=== PATIENT | male | born 1940 ===

== ENCOUNTER 2017-08-05 08:52 | Inpatient (IN) | payer MEDICARE, OTHER ==
--- NOTE | 2017-08-05 10:06 | RAD ---
HISTORY: admission COMPARISON: 10/04/2015 FINDINGS: LUNGS: No active pulmonary disease. PLEURA: No significant pleural effusion identified, no pneumothorax apparent. CARDIOVASCULAR: Normal. OSSEOUS STRUCTURES: No significant abnormalities. VISUALIZED UPPER ABDOMEN: Normal. OTHER FINDINGS: None. IMPRESSION: No active disease.
--- NOTE | 2017-08-05 10:12 | ED PDOC ---
Arrival/HPI - General Chief Complaint: Trauma Time Seen by Provider: 08/05/17 09:04 Historian: Patient - History of Present Illness Narrative History of Present Illness (Text): 08/05/17 10:08 77yo male with PMHx of CVA and right sided weakness secondary to the CVA biba for complaint of syncopal episode. Patient states he had a syncopal episode, on his way to a store this morning. He however denies any focal complaint. Denies headache, nausea, vomiting, dizziness, visual changes, any new focal weakness, chest pain, any other complaint. Past Medical History - Provider Review Nursing Documentation Reviewed: Yes - Infectious Disease Hx of Infectious Diseases: None - Cardiac Hx Hypertension: Yes - Pulmonary Hx Respiratory Disorders: No - Neurological Hx Neurological Disorder: Yes (CVA (2009)) - HEENT Hx HEENT Disorder: No - Renal Hx Renal Disorder: No - Endocrine/Metabolic Hx Endocrine Disorders: No - Hematological/Oncological Hx Blood Disorders: No - Integumentary Hx Dermatological Disorder: Yes (Allergic reaction to left posterior upper back) - Musculoskeletal/Rheumatological Hx Falls: Yes Hx Unsteady Gait: Yes (Post CVA (2009)) - Gastrointestinal Hx Gastrointestinal Disorders: Yes (GI bleed (02/2015)) - Genitourinary/Gynecological Hx Genitourinary Disorders: No - Psychiatric Hx Psychophysiologic Disorder: No Hx Substance Use: No - Anesthesia Hx Anesthesia Reactions: No Hx Malignant Hyperthermia: No - Suicidal Assessment Feels Threatened In Home Enviroment: No Family/Social History - Physician Review Nursing Documentation Reviewed: Yes Family/Social History: Unknown Family HX Smoking Status: Former Smoker Hx Alcohol Use: Yes Hx Substance Use: No Allergies/Home Meds Allergies/Adverse Reactions: Allergies No Known Allergies Allergy (Verified 08/05/17 09:07) Home Medications: Home Meds Medication Instructions Recorded Confirmed Unobtainable 08/05/17 08/05/17 Review of Systems - Physician Review All systems were reviewed & negative as marked: Yes - Review of Systems Constitutional: Normal Eyes: Normal ENT: Normal Respiratory: Normal Cardiovascular: Normal Gastrointestinal: Normal Genitourinary Male: Normal Musculoskeletal: Normal Skin: Normal Neurological: Other (Syncope) Endocrine: Normal Hemo/Lymphatic: Normal Psychiatric: Normal Physical Exam Vital Signs Reviewed: Yes Vital Signs Temp Pulse Resp BP Pulse Ox 08/05/17 11:16 52 L 18 152/71 H 97 08/05/17 09:03 97.7 F 50 L 16 155/76 H 97 Temperature: Afebrile Blood Pressure: Normal Pulse: Bradycardic Respiratory Rate: Normal Appearance: Positive for: Well-Appearing, Non-Toxic, Comfortable Pain Distress: None Mental Status: Positive for: Alert and Oriented X 3 Finger Stick Blood Glucose: 129 - Systems Exam Head: Present: Atraumatic, Normocephalic Pupils: Present: PERRL Extroacular Muscles: Present: EOMI Conjunctiva: Present: Normal Mouth: Present: Moist Mucous Membranes Neck: Present: Normal Range of Motion Respiratory/Chest: Present: Clear to Auscultation, Good Air Exchange. No: Respiratory Distress, Accessory Muscle Use Cardiovascular: Present: Regular Rate and Rhythm, Normal S1, S2. No: Murmurs Abdomen: Present: Normal Bowel Sounds. No: Tenderness, Distention, Peritoneal Signs Back: Present: Normal Inspection Upper Extremity: Present: Normal Inspection. No: Cyanosis, Edema Lower Extremity: Present: Normal Inspection. No: Edema Neurological: Present: GCS=15, CN II-XII Intact, Speech Normal, Motor Func Grossly Intact, Normal Sensory Function, Normal Cerebellar Funct, Memory Normal , Other (Mild weakness on right sided upper/lower extremity with facial droop secondary to old CVA) Skin: Present: Warm, Dry, Normal Color. No: Rashes Psychiatric: Present: Alert, Oriented x 3, Normal Insight, Normal Concentration Medical Decision Making ED Course and Treatment: 08/05/17 10:20 77yo male with h/o CVA in ED for syncopal episode this morning. He was neurologically intact in ED. right sided weakness was noted secondary to old CVA 7years ago. Labs ordered Head CT ordered EKG Sinus diana @40 with AV dissociation and idoventricular rhythm; LAD with LBBB. This are new findings on his EKG compared to his old EKG. Pt likely will need a pacemaker. Will evaluate lab and admit patient for further evaluation and intervention 08/05/17 10:[address] - No acute findings CXR NAD 08/05/17 11:[address] Cornell, while he was in ED and he saw patient by the bedside. Request Dr. canchola consult 08/05/17 12:31 PT was seen in ED by Dr. Canchola. Pt scheduled for pacemaker implant at 0500pm. - Lab Interpretations Lab Results: 08/05/17 09:00 08/05/17 10:20 Lab Results 08/05/17 10:52: Urine Color Yellow, Urine Appearance Sl cloudy, Urine pH 6.0, Ur Specific [place] >= 1.030, Urine Protein 100 H, Urine Glucose (UA) Negative, Urine Ketones Trace H, Urine Blood Moderate H, Urine Nitrate Negative, Urine Bilirubin Negative, Urine Urobilinogen 0.2, Ur Leukocyte Esterase Negative, Urine RBC 10 - 15, Urine WBC Negative 08/05/17 10:20: Sodium 143, Potassium 4.5, Chloride 108 H, Carbon Dioxide 23, Anion Gap 17, BUN 22 H, Creatinine 1.2, Est GFR ( Amer) > 60, Est GFR ( Non-Af Amer) 59, Random Glucose 133 H, Calcium 9.4, Total Bilirubin 0.8, AST 31 , ALT 24, Alkaline Phosphatase 72, Troponin I 0.02 D, Total Protein 7.8, Albumin 4.3, Globulin 3.6, Albumin/Globulin Ratio 1.2, Triglycerides 159, Cholesterol 145, LDL Cholesterol Direct 80, HDL Cholesterol 37 08/05/17 09:00: PT 12.9 H, INR 1.12 H, APTT 27.0 08/05/17 09:00: WBC 8.6, RBC 4.07, Hgb 13.6 L, Hct 40.2 L, MCV 98.8, MCH 33.4, MCHC 33.8, RDW 13.9, Plt Count 168, MPV 12.3 H, Gran % 63.6, Lymph % (Auto) 17.9 L, [place] % (Auto) 10.8 H, Eos % (Auto) 7.2 H, Baso % (Auto) 0.5, Gran # 5.49 , Lymph # 1.5, [place] # 0.9 H, Eos # 0.6, Baso # 0.04 - RAD Interpretation Radiology Orders: 08/05/17 09:10 CHEST PORTABLE [RAD] Stat 08/05/17 09:11 HEAD W/O CONTRAST [CT] Stat - Medication Orders Current Medication Orders: Amlodipine Besylate (Norvasc) 5 mg PO DAILY DAGOBERTO Aspirin (Aspirin Chewable) 81 mg PO DAILY DAGOBERTO Atorvastatin Calcium (Lipitor) 20 mg PO DAILY DAGOBERTO Sodium Chloride (Sodium Chloride 0.45%) 1,000 mls @ 30 mls/hr IV .Q24H DAGOBERTO Pantoprazole Sodium (Protonix Ec Tab) 40 mg PO DAILY DAGOBERTO Discontinued Medications Aspirin (Aspirin Chewable) 81 mg PO STAT STA Stop: 08/05/17 11:19 Atorvastatin Calcium (Lipitor) 20 mg PO STAT STA Stop: 08/05/17 11:20 Disposition/Present on Arrival - Present on Arrival Any Indicators Present on Arrival: No History of DVT/PE: No History of Uncontrolled Diabetes: No Urinary Catheter: No History of Decub. Ulcer: No History Surgical Site Infection Following: None - Disposition Have Diagnosis and Disposition been Completed?: Yes Diagnosis: Bradycardia, Syncope Disposition: HOSPITALIZED Disposition Time: 11:10 Patient Plan: Admission Patient Problems: Current Active Problems Problem Status Onset Bradycardia Acute Syncope Acute Condition: FAIR
[2017-08-05 10:14] LABS: BASO # 0.04 K/mm3 (0.0-2.0); BASO % 0.5 % (0.0-3.0); EOS # 0.6 (0.0-0.7); EOS % 7.2 % (1.5-5.0); GRAN # 5.49 (1.4-6.5); GRAN % 63.6 % (50.0-68.0); HEMOGLOBIN 13.6 g/dL (14.0-18.0); LYMPH # 1.5 (1.2-3.4); LYMPH % 17.9 % (22.0-35.0); MEAN CELL VOLUME 98.8 fl (80.0-105.0); MEAN CORPUSCULAR HEMOGLOBIN 33.4 pg (25.0-35.0); MEAN CORPUSCULAR HGB CONC 33.8 g/dl (31.0-37.0); MEAN PLATELET VOLUME 12.3 fl (7.0-11.0); MONO # 0.9 (0.1-0.6); MONO % 10.8 % (1.0-6.0); RBC 4.07 10^6/uL (3.5-6.1); RED CELL DISTRIBUTION WIDTH 13.9 % (11.5-14.5); WHITE BLOOD COUNT 8.6 10^3/ul (4.5-11.0)
--- NOTE | 2017-08-05 10:25 | CT ---
PROCEDURE: CT HEAD WITHOUT CONTRAST. HISTORY: syncope COMPARISON: 10/04/2015 TECHNIQUE: Axial computed tomography images were obtained through the head/brain without intravenous contrast. Radiation dose: Total exam DLP = 960 mGy-cm. This CT exam was performed using one or more of the following dose reduction techniques: Automated exposure control, adjustment of the mA and/or kV according to patient size, and/or use of iterative reconstruction technique. FINDINGS: HEMORRHAGE: No intracranial hemorrhage. BRAIN: No mass effect or edema. There is a chronic white matter infarct in the left seals radiata measuring 12 x 28 mm. There is surrounding encephalomalacia. There are no acute findings VENTRICLES: Unremarkable. No hydrocephalus. CALVARIUM: Unremarkable. PARANASAL SINUSES: Unremarkable as visualized. No significant inflammatory changes. MASTOID AIR CELLS: Unremarkable as visualized. No inflammatory changes. OTHER FINDINGS: None. IMPRESSION: No acute intracranial findings
[2017-08-05 10:31] LABS: INR 1.12 (0.93-1.08); PROTHROMBIN TIME 12.9 SECONDS (9.4-12.5)
[2017-08-05 10:51] LABS: ALB/GLOB RATIO 1.2 (1.1-1.8); ALBUMIN 4.3 g/dL (3.0-4.8); ALT/SGPT 24 U/L (7-56); AST/SGOT 31 U/L (17-59); BLOOD UREA NITROGEN 22 mg/dL (7-21); CALCIUM 9.4 mg/dL (8.4-10.5); GFR AFRICAN-AMERICAN > 60; GFR NON-AFRICAN AMERICAN 59; HDL CHOLESTEROL 37 mg/dL (29-60)
[2017-08-05 11:04] LABS: URINE BILIRUBIN NEGATIVE (NEGATIVE); URINE BLOOD MODERATE (NEGATIVE); URINE GLUCOSE (UA) NEGATIVE (NEGATIVE); URINE LEUKOCYTE ESTERASE NEGATIVE Leu/uL (NEGATIVE); URINE NITRATE NEGATIVE (NEGATIVE); URINE PROTEIN 100 mg/dL (<30 mg/dL); URINE UROBILINOGEN 0.2 E.U./dL (<1 E.U./dL)
[2017-08-05 11:05] LABS: URINE APPEARANCE SL CLOUDY (CLEAR); URINE COLOR YELLOW (YELLOW)
[2017-08-05 11:11] LABS: LDL CHOLESTEROL 80 mg/dL (0-129); TROPONIN I 0.02 ng/mL
[2017-08-05 11:13] LABS: URINE WBC NEGATIVE /hpf (0-6)
[2017-08-05] MEDS ORDERED: Sodium Chloride 0.45% 1,000 ML IV SCH (11:30)
[2017-08-05] MEDS ORDERED: Liquid Adhesive TOP ONE (16:00)
[2017-08-05] MEDS ORDERED: Lidocaine 2% Inj (20ml) ONE (17:15)
[2017-08-05] MEDS ORDERED: Midazolam 2 MG/2 ML VIAL ONE (17:16)
[2017-08-05] MEDS ORDERED: Phenylephrine 10 mg/ml Inj ONE (17:16)
[2017-08-05] MEDS ORDERED: HEPARIN SODIUM/NS 2,000 ML IV ONE (17:16)
--- NOTE | 2017-08-05 19:01 | CARD ---
APPROVED REPORT EXAM: Two-dimensional and M-mode echocardiogram with Doppler and color Doppler. INDICATION Syncope 2D DIMENSIONS IVSd1.3 (0.7-1.1cm)LVDd4.7 (3.9-5.9cm) PWd1.5 (0.7-1.1cm)LVDs3.3 (2.5-4.0cm) FS (%) 29.1 %LVEF (%)55.9 (>50%) M-Mode DIMENSIONS Aortic Root3.80 (2.2-3.7cm)Aortic Cusp Exc.1.90 (1.5-2.0cm) Aortic Valve AoV Peak Swmvafhe935.0cm/Naila Peak GR.7mmHg Mitral Valve MV E Zleoyepd74.0cm/sMV A Ddpgtufu070.0cm/sE/A ratio0.5 TDI Lateral E' Peak V7.31cm/sMedial E' Peak V6.92cm/sE/Lateral E'8.3 E/Medial E'8.8 Pulmonary Valve PV Peak Chajchet972.0cm/sPV Peak Grad.5mmHg Tricuspid Valve TR Peak Xnlaoemj885xe/sRAP RNICJIMS23syTdCL Peak Gr.31mmHg MJWE22mhCs LEFT VENTRICLE The left ventricle is normal size. There is mild concentric left ventricular hypertrophy. The left ventricular function is normal. The left ventricular ejection fraction is within the normal range. There is normal LV segmental wall motion. Transmitral Doppler flow pattern is Grade I-abnormal relaxation pattern. RIGHT VENTRICLE The right ventricle is normal size. There is normal right ventricular wall thickness. The right ventricular systolic function is normal. ATRIA The left atrium size is normal. The right atrium size is normal. AORTIC VALVE The aortic valve is mildly thickened. There is no aortic valvular stenosis. MITRAL VALVE The mitral valve is mildly thickened. There is no mitral valve regurgitation noted. There is no mitral valve stenosis. TRICUSPID VALVE There is mild pulmonary hypertension. PULMONIC VALVE There is trace pulmonic valvular regurgitation. GREAT VESSELS The aortic root is normal in size. PERICARDIAL EFFUSION There is a trace loculated anterior pericardial effusion. <Conclusion> The left ventricle is normal size. There is mild concentric left ventricular hypertrophy. The left ventricular function is normal. The left ventricular ejection fraction is within the normal range. There is normal LV segmental wall motion. Transmitral Doppler flow pattern is Grade I-abnormal relaxation pattern. There is mild pulmonary hypertension.
--- NOTE | 2017-08-05 20:04 | CON ---
DATE: 08/05/2017 CARDIOLOGY CONSULTATION HISTORY OF PRESENT ILLNESS: The patient is a 77-year-old male who presented to the Emergency Room with a syncopal episode. He was found to be in complete heart block. The patient's past medical history is free of cardiac disease. He is on three medications in which he is unclear what they are for. The patient lives by himself. His cardiovascular history includes a history of a CVA, which the patient uses a cane to walk around. No previous myocardial infarction in the past. He denies chest pain, denies shortness of breath. SOCIAL HISTORY: He is a former smoker. REVIEW OF SYSTEMS: A 14-point review of systems is reviewed in detail. No cardiac symptomatology other than what was mentioned above. PHYSICAL EXAMINATION: VITAL SIGNS: Blood pressure is 155/76, heart rate in the 50s, in complete heart block. NECK: Negative JVD. LUNGS: Without rales. HEART: S1, S2. EXTREMITIES: Without edema. EKG shows complete heart block. LABORATORY: Troponin is negative x1. BUN and creatinine is unremarkable. Hemoglobin is 13.6. IMPRESSION: 1. Syncope. 2. Complete heart block. 3. History of hypertension. 4. History of cerebrovascular accident. Given these findings, the patient will need a pacemaker. We will arrange for a pacemaker to be done urgently. I have discussed with Dr. Whitfield who will make arrangements to have the pacemaker placed today. Mike Canchola MD
[2017-08-05] MEDS ORDERED: DOPamine 400mg/250ml D5W 400 MG/250 ML BAG IV ONE (20:31)
--- NOTE | 2017-08-05 21:46 | CARD ---
APPROVED REPORT EKG Measurement Heart [id number] <Conclusion> Normal sinus rhythm Left axis deviation Right bundle branch block Septal infarct, age undetermined Abnormal ECG
[2017-08-05 21:47] VITALS: BMI 25.1
--- NOTE | 2017-08-05 22:30 | CARD ---
APPROVED REPORT EKG Measurement Heart [id number] KS P59 [id number] <Conclusion> Sinus rhythm with complete AV Block Left axis deviation Left bundle branch block Abnormal ECG
--- NOTE | 2017-08-05 22:38 | CARD ---
APPROVED REPORT EXAM: LIMITED Two-dimensional and M-mode echocardiogram. INDICATION R/O PERICARDIAL EFFUSION PERICARDIAL EFFUSION There is a trace loculated anterior pericardial effusion. <Conclusion> There is a trace loculated anterior pericardial effusion. Recent report The left ventricle is normal size. There is mild concentric left ventricular hypertrophy. The left ventricular function is normal. The left ventricular ejection fraction is within the normal range. There is normal LV segmental wall motion. Transmitral Doppler flow pattern is Grade I-abnormal relaxation pattern. There is mild pulmonary hypertension.
--- NOTE | 2017-08-05 23:03 | HP ---
HISTORY OF PRESENT ILLNESS: I was called down to the emergency room for this young man I see in the office. This is a 77-year-old man who complains of syncopal episode. He was on his way to the store. He has a past medical history of CVA with right-sided weakness secondary to CVA. He was brought in by ambulance for this complaint. He has a history of hypertension, GERD, CVA. He had a GI bleed in the past. FAMILY HISTORY: Unknown family history. SOCIAL HISTORY: Former smoker. Drinks alcohol. No substance abuse. ALLERGIES: NO KNOWN DRUG ALLERGIES. MEDICATIONS: He takes amlodipine 5 mg daily, aspirin 81 mg daily, atorvastatin 20 mg daily, Protonix 40 mg daily. REVIEW OF SYSTEMS: He is lightheaded and had a syncopal episode. No acute vision or hearing changes. No sore throat. No chest pain or palpitations. No shortness of breath. No cough. No abdominal pain, nausea, vomiting, constipation, diarrhea. No leg pains. He just sort of syncopized. No nervousness. No anxiety. PHYSICAL EXAMINATION: VITAL SIGNS: He has a 97.7 temp, 50 pulse, 16 respiratory rate, 155/76 blood pressure, 97% O2 sat on room air. The pulse also dropped in the 30s. GENERAL: He is well appearing, nontoxic, comfortable, alert now in the [facility]. He is bradycardic. His blood sugar was 129. HEENT: His head is atraumatic, normocephalic. Extraocular muscles are intact. Pupils are equally reactive to light. Throat is moist. NECK: Supple. Normal range of motion. HEART: Regular rate. Normal S1, S2. LUNGS: Decreased breath sounds. Clear to auscultation bilaterally. ABDOMEN: Soft, nontender. Positive bowel sounds. No guarding. No rebound. No CVA tenderness. EXTREMITIES: No edema. He can move all 4 extremities. NEUROLOGIC: GCS is 15. Cranial nerves II through XII grossly intact. Normal speech. He does have mild right weakness secondary to his CVA. SKIN: Warm and dry. No apparent rashes or ulcers. PSYCHIATRIC: Alert and oriented x3. Not anxious. Worried about having a pacemaker. LABORATORY DATA: He had test done. He has 8.6 white count, 13.6, hemoglobin, 40.2 hematocrit with a 168 platelets. 1.12 INR. 143 sodium, potassium 4.5, BUN 22, creatinine 1.2. GFR is 59, sugars 133, calcium is 9.4, total bili is 0.8. AST is 31, ALT is 24, alk phos 72. Total protein is 7.8. Troponin I is 0.02. Albumin is 4.3. He had a chest x-ray which was clear and a CAT scan of the head which has no acute intracranial abnormalities at this time. EKG was slow to the 30s. PLAN: We will call Dr. Canchola, the mold forms builder. We will put him on telemetry. Put him back on his medications, IV fluids. Check his labs tomorrow. I believe, there is also a swallow evaluation. We will continue with aggressive treatment and care. may need a pacemaker for his bradycardia and syncopal episode. Vinay Cornell DO MTDD
[2017-08-06 07:20] LABS: HEMOGLOBIN 12.5 g/dL (14.0-18.0); MEAN CELL VOLUME 97.6 fl (80.0-105.0); MEAN CORPUSCULAR HEMOGLOBIN 32.9 pg (25.0-35.0); MEAN CORPUSCULAR HGB CONC 33.7 g/dl (31.0-37.0); MEAN PLATELET VOLUME 12.1 fl (7.0-11.0); RBC 3.8 10^6/uL (3.5-6.1); RED CELL DISTRIBUTION WIDTH 13.4 % (11.5-14.5); WHITE BLOOD COUNT 8.8 10^3/ul (4.5-11.0)
[2017-08-06 07:39] LABS: ALB/GLOB RATIO 1.2 (1.1-1.8); ALBUMIN 3.6 g/dL (3.0-4.8); ALT/SGPT 32 U/L (7-56); AST/SGOT 32 U/L (17-59); BLOOD UREA NITROGEN 17 mg/dL (7-21); CALCIUM 8.7 mg/dL (8.4-10.5); GFR AFRICAN-AMERICAN > 60; GFR NON-AFRICAN AMERICAN > 60
--- NOTE | 2017-08-06 09:25 | RAD ---
HISTORY: post ppm implant COMPARISON: No prior. FINDINGS: LUNGS: No active pulmonary disease. PLEURA: No significant pleural effusion identified, no pneumothorax apparent. CARDIOVASCULAR: Normal. OSSEOUS STRUCTURES: No significant abnormalities. VISUALIZED UPPER ABDOMEN: Normal. OTHER FINDINGS: None. IMPRESSION: There is a new right-sided dual lead pacemaker. There is no pneumothorax
--- NOTE | 2017-08-06 09:47 | OP ---
PROCEDURE DATE: 08/05/2017. PROCEDURE: Dual chamber permanent pacemaker implantation. PREPROCEDURE DIAGNOSIS: Complete heart block. BRIEF HISTORY: Mr. Jermaine Couch is a 77-year-old [place] male with past medical history significant for hypertension, stroke, and prior history of syncope, who presents to [facility] today with an episode of recurrent syncope. The patient had been in his usual state of health, walking down the street, where all of a sudden he lost consciousness and ended up falling. He regained conscious. He was seen by a bystander. EMS was called. He was found to be in complete heart block with an escape rhythm in the 40s with no atrioventricular association. I was asked to manage the patient. The recommendation had been for implantation of a permanent pacemaker. The patient had baseline bifascicular block with first degree AV block. The patient had prior episodes of syncope with no other finding. Informed consent was received for the procedure as well as conscious sedation of which he received 1 mg of versed and 25 mcg of fentanyl. Of note, the patient has a history of CVA with residual right-sided weakness, therefore, a right-sided implant had been desired. The patient was brought into the room in satisfactory condition. The patient did have resumption of intrinsic rhythm with a heart rate in the 70s. The patient was draped and prepped in a sterile fashion. A 2% lidocaine solution was injected into the surgical site. A 3.5 cm incision was made 2 fingerbreadths below the clavicle. Using blunt dissection and electrocautery, the pressure points were dissected and subclavian vein was identified. A subclavian vein cut down was then performed. A glide wire was used to achieve and maintain access. Subsequently, a 9-Bulgarian SafeSheath was inserted again without difficulty. The right ventricular lead which is a Medtronic [id number] CapSureFix lead serial #[id number] was inserted via the sheath and manipulated into the right ventricular apex without difficulty. At that point, the patient began to complain of pain in his left arm. The patient's blood pressure dropped precipitously down to a systolic of 48. The patient was given wide open fluid, initiated on dopamine. The patient's sinus rate remained stable, despite being hypotensive. The patient also had complains of dizziness. The right ventricular lead at that point was inspected under multiple views. There was no clear evidence of RV lead extrusion into the pericardium, nonetheless, the right ventricular lead was repositioned into a septal position. Subsequently, using retain access an 035 glide wire was again put through the 9-Bulgarian SafeSheath, a 7-Bulgarian SafeSheath was inserted without difficulty. The right atrial lead was then inserted via the sheath. This is Medtronic [id number], CapSureFix lead serial #[id number]. Parameters on this lead was within normal limits with threshold of 1.0 volt to 0.4 milliseconds, impedance of 437 with Q-wave seems to be 2.6. Again the RV lead serial #[id number]. The parameters on the right ventricular lead also was within normal limits with threshold with 0.25 volts to 0.4 milliseconds R-waves measured 3.8 . Lead impedance was 817, both of which were within normal limits. At that point, it was thought that the patient may be having a vagal reaction. The patient had blood pressure cuff on the left arm and possible infiltrating IVs. The patient had been receiving fluids as well. With significant pain, it was thought perhaps the patient had a vagal episode. Blood pressure cuff was moved to the leg. The patient's condition and complaints of pain and dizziness did resolve. Dopamine was discontinued. At that point, both leads were tied in using 0 silk suture. The leads were then connected to the pulse generator, which is a Medtronic MRI-Safe device serial #[id number]. Again this is a Medtronic Advisa DR device which is MRI compatible. A fresh pocket was made with blunt dissection and electrocautery, irrigated with bacitracin solution, lead placement device was then coiled and placed in the pocket without difficulty. Retention suture was applied again without difficulty. The skin layers were brought together using 2 layers of 2-0 Vicryl. The final area was closed with Mastisol and Steri-Strips. A small pressure dressing was then applied. Postoperatively, the patient remained hemodynamically stable. For further evaluation, a limited 2D echocardiogram was performed, study was reviewed in real time which did not show any evidence of significant pericardial effusion. The patient remained hemodynamically stable at the end of the case. PLAN: The patient should undergo normal postop checks which include a 12-lead EKG, chest x-ray as well as device check in the morning. He will be moved to the ICU as a precaution for further monitoring. If he remain stable, the patient may be down graded further management and evaluation as per Dr. Mike Prajapati. Thank you for allowing me to participate in the care of your patient. Please do not hesitate to call for any questions in regards to his care. Your's sincerely, Miguel Tejada MD
[2017-08-06] MEDS: Pantoprazole 40 mg EC Tab PO SCH (10:04)
--- NOTE | 2017-08-06 12:24 | CARD ---
APPROVED REPORT EKG Measurement Heart [id number] [place] [id number] <Conclusion> Electronic ventricular pacemaker with failure of sensing Sinus rhytm RBBB
--- NOTE | 2017-08-06 12:58 | PN ---
DATE: SUBJECTIVE: We admitted him last night. He came in with a very low pulse rate and it is possible he may need to have a pacemaker. Although his pulse is now in the 70s, he is in the intensive care unit. He is feeling a lot better. PHYSICAL EXAMINATION: VITAL SIGNS: He has 98.2 temperature, 73 pulse, 16 respiratory rate, 90% O2 sat. HEENT: Head is atraumatic and normocephalic. HEART: Regular rate. LUNGS: Decreased breath sounds, but clear. ABDOMEN: Soft. EXTREMITIES: No edema. MEDICATIONS: He is currently on aspirin, Lipitor, Norvasc, Protonix and IV fluids. LABORATORY DATA: He has 8.8 white count, 12.5 hemoglobin, 37.1 hematocrit, with a 146 platelets. His INR is 1.12. He has a 142 sodium, potassium is 4, BUN 17, and creatinine 1.1. GFR is greater than 60. Sugar is 112, calcium is 8.7, total bilirubin is 1.1, AST is 32, ALT is 32, alkaline phosphatase is 58. Troponin I was 0.02. Total protein is 6.7, albumin is 3.6. His urine was negative. ASSESSMENT AND PLAN: Awaiting for Dr. Canchola, the Orthopedic Technician, to see him to make a decision on pacemaker or not. He_ syncope, complete heart block, and history of hypertension. He will need a pacemaker. We discussed with Dr. Tejada and make arrangements for pacemaker for possibility of today. We will follow up in the intensive care unit. Continue with treatment and care. He is for severe bradycardia. Vinay Cornell DO MTDEmily
--- NOTE | 2017-08-06 18:09 | PN ---
CARDIOLOGY FOLLOWUP DATE: 08/06/2017 SUBJECTIVE: The patient is feeling better. The patient is status post pacemaker placement for complete heart block with a syncopal episode. OBJECTIVE: VITAL SIGNS: Currently, the patient's blood pressure is 141/100, heart rate is in the 80s, normal sinus rhythm with first-degree heart block and intraventricular conduction defect. NECK: Negative JVD. LUNGS: Without rales. HEART: S1 and S2. EXTREMITIES: Without edema. LABORATORY DATA: Hemoglobin is 12.5. Chemistries; BUN and creatinine is unremarkable. IMPRESSION: Status post pacemaker placement for complete heart block. PLAN: Given these findings, we will transfer the patient to telemetry today. We will begin ambulation. If the patient is stable, the patient can be discharged for follow up and cardiac workup as an outpatient. Mike Canchola MD
[2017-08-07 07:14] LABS: HEMOGLOBIN 13.9 g/dL (14.0-18.0); MEAN CELL VOLUME 96.9 fl (80.0-105.0); MEAN CORPUSCULAR HEMOGLOBIN 33.2 pg (25.0-35.0); MEAN CORPUSCULAR HGB CONC 34.2 g/dl (31.0-37.0); MEAN PLATELET VOLUME 11.9 fl (7.0-11.0); RBC 4.19 10^6/uL (3.5-6.1); RED CELL DISTRIBUTION WIDTH 13.5 % (11.5-14.5)
[2017-08-07 07:31] LABS: ALB/GLOB RATIO 1.1 (1.1-1.8); ALBUMIN 3.8 g/dL (3.0-4.8); ALT/SGPT 26 U/L (7-56); AST/SGOT 35 U/L (17-59); BLOOD UREA NITROGEN 17 mg/dL (7-21); CALCIUM 8.9 mg/dL (8.4-10.5); GFR AFRICAN-AMERICAN > 60; GFR NON-AFRICAN AMERICAN > 60
[2017-08-07 08:04] VITALS: RESP 16; O2SAT 94
[2017-08-07] MEDS: Pantoprazole 40 mg EC Tab PO SCH (09:05)
[2017-08-07 11:22] VITALS: BP 129/61; PULSE 104
[2017-08-07 12:12] LABS: HEMOGLOBIN 13.5 g/dL (14.0-18.0); MEAN CORPUSCULAR HEMOGLOBIN 33.5 pg (25.0-35.0); MEAN CORPUSCULAR HGB CONC 34.5 g/dl (31.0-37.0); RBC 4.03 10^6/uL (3.5-6.1); RED CELL DISTRIBUTION WIDTH 13.2 % (11.5-14.5); WHITE BLOOD COUNT 13.7 10^3/ul (4.5-11.0)
--- NOTE | 2017-08-07 13:03 | PN ---
DATE: 08/07/2017 CARDIOLOGY FOLLOWUP SUBJECTIVE: The patient is asymptomatic. PHYSICAL EXAMINATION: VITAL SIGNS: Blood pressure is 137/62 and heart rate is tachycardic 100 during the activity. NECK: Negative JVD. LUNGS: Without rales. HEART: Reveals S1 and S2. EXTREMITIES: Without edema. LABORATORY DATA: Hemoglobin is 13.9. Chemistries, BUN and creatinine unremarkable. IMPRESSION: We interrogated the pacemaker. The pacemaker function is working well. We added beta lolis to help with his blood pressures and heart rate. From a cardiac perspective, the patient can be discharged. A followup outpatient stress test would be appropriate. Mike Canchola MD
[2017-08-07 17:43] VITALS: TEMP 99.2
--- NOTE | 2017-08-07 17:57 | CARD ---
APPROVED REPORT EKG Measurement Heart [id number] [place] 204P60 [id number] <Conclusion> Normal sinus rhythm Right bundle branch block Left anterior fascicular block Bifascicular block Minimal voltage criteria for LVH, may be normal variant Septal infarct, age undetermined Abnormal ECG
--- NOTE | 2017-08-08 05:13 | DS ---
HISTORY OF PRESENT ILLNESS: I saw him resting comfortably in bed. I discussed with Dr. Canchola, the wirer helper, that he could be discharged today. He had a permanent pacemaker implanted for a low pulse and bradycardia. He is on aspirin, Lipitor, Lopressor, Norvasc and Protonix, those are the medications that he will be sent home on. PHYSICAL EXAMINATION: VITAL SIGNS: He has 98 temperature, 93 pulse, 16 respiratory rate, 95% O2 saturation on room air. HEENT: Head is atraumatic and normocephalic. HEART: Regular rate. LUNGS: Decreased breath sounds, but clear. ABDOMEN: Soft. NEUROLOGIC: He has right-sided weakness secondary to a stroke. He has a permanent pacemaker placed on the right side. LABORATORY DATA: He has a 13,000 white count, it could be stress related that was done this morning at 05:50, I ordered a stat CBC. If it is coming down or normal, I will discharge him this afternoon. He has a 13.9 hemoglobin, 40.6 hematocrit with 134 platelets. He has a 139 sodium, potassium 4, BUN 17, creatinine 1, GFR is greater than 60, sugar is 165, calcium is 8.9, total bilirubin is 1.1, AST is 35, ALT is 26, alkaline phosphatase is 57. He was seen by Cardiology, he had a pacemaker implanted, and hoping that he will do very well. We will see him in the office in about a week. We are going to do a stat CBC, then if it is okay, we will discharge him. Vinay Cornell DO
== END 2017-08-07 18:20 | disposition home or self-care (01) | DRG 243 ==
LOC: ED 08:52 → ERH 11:19 → 2RSO 15:56 → ICU 21:38
PROVIDERS: ADMIT Family Medicine; ATTEND Family Medicine
PROC: 0JH606Z Insertion of Pacemaker, Dual Chamber into Chest Subcutaneous Tissue and Fascia, Open Approach (ICD-10-PCS; principal; 2017-08-05)
PROC: 02H63JZ Insertion of Pacemaker Lead into Right Atrium, Percutaneous Approach (ICD-10-PCS; 2017-08-05)
PROC: 02HK3JZ Insertion of Pacemaker Lead into Right Ventricle, Percutaneous Approach (ICD-10-PCS; 2017-08-05)
DX: I44.2 Atrioventricular block, complete (principal); I69.351 Hemiplegia and hemiparesis following cerebral infarction affecting right dominant side; I45.2 Bifascicular block; K21.9 Gastro-esophageal reflux disease without esophagitis; I10 Essential (primary) hypertension; R55 Syncope and collapse; Z87.891 Personal history of nicotine dependence

== ENCOUNTER 2017-08-19 06:30 | Day surgery (SDC) | payer MEDICARE, OTHER ==
[2017-08-18 13:24] VITALS: BMI 24.3
[2017-08-19 07:13] LABS: BASO # 0.03 K/mm3 (0.0-2.0); BASO % 0.4 % (0.0-3.0); EOS # 0.4 (0.0-0.7); EOS % 4.7 % (1.5-5.0); GRAN # 5.8 (1.4-6.5); HEMOGLOBIN 12.4 g/dL (14.0-18.0); LYMPH # 1.1 (1.2-3.4); LYMPH % 13.5 % (22.0-35.0); MEAN CELL VOLUME 98.7 fl (80.0-105.0); MEAN CORPUSCULAR HEMOGLOBIN 33.3 pg (25.0-35.0); MEAN CORPUSCULAR HGB CONC 33.8 g/dl (31.0-37.0); MEAN PLATELET VOLUME 11.2 fl (7.0-11.0); MONO # 0.8 (0.1-0.6); MONO % 9.4 % (1.0-6.0); RBC 3.72 10^6/uL (3.5-6.1); RED CELL DISTRIBUTION WIDTH 13.6 % (11.5-14.5); WHITE BLOOD COUNT 8.1 10^3/ul (4.5-11.0)
[2017-08-19 07:28] LABS: BLOOD UREA NITROGEN 25 mg/dL (7-21); CALCIUM 8.9 mg/dL (8.4-10.5); GFR AFRICAN-AMERICAN > 60; GFR NON-AFRICAN AMERICAN > 60
[2017-08-19 07:41] LABS: INR 1.17 (0.93-1.08); PARTIAL THROMBOPLASTIN TIME 30.8 Seconds (25.1-36.5); PROTHROMBIN TIME 13.5 SECONDS (9.4-12.5)
[2017-08-19] MEDS ORDERED: HEPARIN SODIUM/NS 2,000 ML IV ONE (09:00)
[2017-08-19] MEDS ORDERED: Midazolam 2 MG/2 ML VIAL ONE ×2 (09:16→09:35)
[2017-08-19] MEDS ORDERED: Lidocaine 2% Inj (20ml) ONE (09:16)
[2017-08-19] MEDS ORDERED: Iohexol 350 MG/100 ML VIAL ONE (10:21)
[2017-08-19] MEDS ORDERED: Sodium Chloride 0.9% 1,000 ML IV SCH (10:45)
--- NOTE | 2017-08-19 16:56 | CARD ---
APPROVED REPORT EKG Measurement Heart [id number] [place] 136P8 [id number] <Conclusion> AV sequential or dual chamber electronic pacemaker
--- NOTE | 2017-08-19 17:31 | CARD ---
APPROVED REPORT EKG Measurement Heart [id number] [place] 182P51 [id number] <Conclusion> AV sequential or dual chamber electronic pacemaker
--- NOTE | 2017-08-19 22:14 | CARDCATH ---
PROCEDURE DATE: 08/19/2017 CARDIAC CATH AND PTCA HISTORY: The patient is a 77-year-old male with multiple cardiac risk factors who presents with an abnormal stress test. He suffers from chest pain as well as had a history of syncope. A cardiac catheterization was recommended. PROCEDURE: Left heart catheterization with coronary arteriography and left ventriculogram followed by PTCA and stent of an LAD and PCI of the diagonal vessel. I performed moderate sedation which included the presence of an independent trained observer that assisted in monitoring the patient's level of consciousness and physiologic status. After administration of Versed and fentanyl, my intra-service time was 30 minutes. The findings on catheterization revealed a left ventricle that was in the lower limits of normal, estimated ejection fraction is 50%. CORONARY ANATOMY: His coronary anatomy revealed a right dominant circulation of the RCA with diffuse atherosclerosis and calcification without critical lesions. There is disease in the distal vessel. The left main artery was calcified, but without critical lesions. The LAD revealed a long 80% stenosis extending from the proximal LAD into the mid LAD. The diagonal vessels were subtotally occluded. The patient was started on intravenous Angiomax on the fluoroscopic guide, the guiding catheter was placed in the ostium of left main artery. An 0.014 ATW wire was used to cross the subtotal occluded diagonal vessel. A 2.0 balloon was utilized to predilate the lesion. This was followed by placing a 2.25 x 8 mm drug-eluting stent in the proximal diagonal vessel. Repeat coronary arteriography revealed an excellent result with improved flow into the diagonal vessel. The wire was then brought back and placed into the LAD. A 2.5 balloon was utilized to predilate the long lesion. A 3.0 x 30 mm drug-eluting stent was placed and deployed at 16 atmospheres of pressure. This was followed by deployment of an 8 mm x 3.0 drug-eluting stent in the ostium of the LAD at 17 atmospheres of pressure. Repeat coronary arteriography revealed an excellent result with no residual stenosis and PERRY-3 flow. The critical lesion in the circumflex artery was not manipulated. Angio-Seal was used to close the femoral artery site. The patient tolerated the procedure well. In summary, the procedure was successful for PTCA and stent of a long lesion in the LAD with a drug-eluting stent, which was preceded by PCI and stenting of a diagonal vessel that was diffusely diseased and small, but the subtotal occlusion was opened with a 2.25 stent. Cardiac catheterization reveals triple-vessel CAD. LV function was preserved with an EF of approximately 50%. Given these findings, the patient will need to remain on aspirin indefinitely and Plavix for least a year and undergo a strict cardiac risk reduction program. We will bring him back in 1 week for PTCA and stent of the circumflex artery. Mike Canchola MD
--- NOTE | 2017-08-20 03:57 | HP ---
HISTORY OF PRESENT ILLNESS: I have known Jermaine Couch for a while, he was just in the hospital recently. He went and had a stress test with Dr. Canchola because he had shortness of breath complaints back in 08/07/2017. He had also a low heart rate bradycardia, a permanent pacemaker was inserted on 08/05/2017 and now he comes back for another cardiac cath elective with Dr. Canchola. He was stented. He has a prior history of CAD, hypertension and stroke 2009 with right-sided weakness, slight slurred speech, fall on 08/14/2017, complete heart block and syncope. The patient has a pacemaker now. No cancer history. Brother has lung cancer. Quit smoking 7 years ago. He did have surgeries. He had a pacemaker implanted. He is awake, alert and comfortable. Stroke with right-sided weakness. He is alert, awake and can make his thoughts and needs available to you. He had a GI bleed in the past. ALLERGIES: HE HAS NO KNOWN DRUG ALLERGIES. HE HAD ALLERGIC REACTIONS IN THE PAST. MEDICATIONS: He is currently taking aspirin, Lipitor, Lopressor and Plavix. REVIEW OF SYSTEMS: No acute vision or hearing changes. No sore throat. He was short of breath. He had shortness of breath on the stress test with no palpitations. No cough. No chest pain. No abdominal pain, nausea, vomiting, constipation, or diarrhea. No leg pains. He can move all four extremities although he does have right-sided weakness and slurred speech. Skin for the most part is intact that he could tell us, no rashes. PHYSICAL EXAMINATION: VITAL SIGNS: He has 98.5 temperature, 60 pulse, 133/75 blood pressure, 18 respiratory rate, 98% O2 sat on room air. HEENT: Head is atraumatic, normocephalic. Eyes are open. Extraocular muscles are intact. Throat is moist. NECK: Supple. Thyroid midline. No palpable appreciable lymphadenopathy. HEART: Regular rate now, he has got a permanent pacemaker in place. LUNGS: Decreased breath sounds, but clear to auscultation. ABDOMEN: Soft, nontender. Positive bowel sounds. No guarding, no rebound, no CVA tenderness. EXTREMITIES: No edema. He has got right-sided weakness secondary to the stroke. Mild slurred speech. He is alert and oriented x3. SKIN: For the most part that I could tell is intact. Good turgor. No rashes or ulcers appreciated. NEUROLOGIC: GCS is 15. LABORATORY DATA: He has a 144 sodium, potassium 4.4, chloride 108, BUN 25, creatinine 0.1, GFR is greater than 60, sugar is 117, calcium is 8.9, INR is 1.17. White count 7.1, hemoglobin 12.4, hematocrit 36.7, platelets 237. He had a cardiac cath stents were placed. We will check his labs tomorrow. We will give him dinner, heart healthy diet and then Dr. Canchola feels he can go tomorrow. We will be discharging him tomorrow. He is here for CAD, positive stress test with stents placed. We will follow closely. Vinay Cornell DO MTDEmily
[2017-08-20 06:12] VITALS: O2SAT 98
[2017-08-20 07:22] LABS: BASO # 0.02 K/mm3 (0.0-2.0); BASO % 0.2 % (0.0-3.0); EOS # 0.3 (0.0-0.7); EOS % 3.5 % (1.5-5.0); GRAN # 7.17 (1.4-6.5); GRAN % 75.6 % (50.0-68.0); HEMOGLOBIN 12.5 g/dL (14.0-18.0); LYMPH # 1.3 (1.2-3.4); LYMPH % 13.2 % (22.0-35.0); MEAN CELL VOLUME 95.8 fl (80.0-105.0); MEAN CORPUSCULAR HEMOGLOBIN 32.8 pg (25.0-35.0); MEAN CORPUSCULAR HGB CONC 34.2 g/dl (31.0-37.0); MEAN PLATELET VOLUME 11.2 fl (7.0-11.0); MONO # 0.7 (0.1-0.6); MONO % 7.5 % (1.0-6.0); RBC 3.81 10^6/uL (3.5-6.1); RED CELL DISTRIBUTION WIDTH 13.5 % (11.5-14.5); WHITE BLOOD COUNT 9.5 10^3/ul (4.5-11.0)
[2017-08-20 08:03] LABS: ALBUMIN 3.5 g/dL (3.0-4.8); ALT/SGPT 31 U/L (7-56); AST/SGOT 31 U/L (17-59); BLOOD UREA NITROGEN 20 mg/dL (7-21); CALCIUM 9.1 mg/dL (8.4-10.5); GFR AFRICAN-AMERICAN > 60; GFR NON-AFRICAN AMERICAN > 60
[2017-08-20] MEDS ORDERED: Pneumococcal 23-Valent Vaccine IM ONE (10:06)
[2017-08-20 12:12] VITALS: BP 121/56; RESP 19; TEMP 98.3
--- NOTE | 2017-08-20 13:30 | PN ---
DATE: 08/20/2017 SUBJECTIVE: He is resting comfortably in bed. He had a cardiac cath yesterday with stents placed. He feels well. No chest pain or shortness of breath. He is hungry. He is in good spirits. PHYSICAL EXAMINATION: VITAL SIGNS: Temp 98.7, 62 pulse, 112/60 blood pressure, 20 respiratory rate, 98% O2 sat on room air. HEAD: Atraumatic, normocephalic. HEART: Regular rate. LUNGS: Clear to auscultation. ABDOMEN: Soft. EXTREMITIES: He has got weakness secondary to the stroke on his right side. MEDICATIONS: He is on Ecotrin, Lipitor, Lopressor, Plavix, will be the medications he will go home with. LABORATORY DATA: He has 9.5 white count, 12.5 hemoglobin, 36.5 hematocrit, with 252,000 platelets. He has 144 sodium, potassium is 4.4, BUN is 25, creatinine 1.1, GFR is greater than 60, sugar is 117, calcium is 8.9. PLAN: He did very well with the cardiac cath. He will be discharged today after Dr. Canchola sees him. He will be seen in the office in about a week with CAD and cardiac stents. Vinay Cornell DO MTDD
[2017-08-20 14:10] VITALS: PULSE 76
--- NOTE | 2017-08-20 15:51 | CARD ---
APPROVED REPORT EKG Measurement Heart [id number] [place] 184P39 [id number] <Conclusion> Electronic ventricular pacemaker Fusion beats
--- NOTE | 2017-08-20 18:23 | PN ---
DATE: 08/20/2017 CARDIOLOGY FOLLOWUP SUBJECTIVE: The patient is asymptomatic. OBJECTIVE: VITAL SIGNS: Blood pressure is 121/56 and the heart rate is in the 60s. NECK: Negative JVD. LUNGS: Without rales. HEART: S1, S2. EXTREMITIES: Without edema. LABORATORY DATA: BUN and creatinine are normal. Hemoglobin is 12.5. EKG is unchanged. IMPRESSION: Status post percutaneous transluminal coronary angioplasty and stent of a long lesion in the left anterior descending with a drug-eluting stent and percutaneous coronary intervention of the diagonal vessel. The patient is doing well. PLAN: The patient will need to be on aspirin indefinitely and Plavix for at least a year. We will bring the patient back in 1 week for PTCA and stent of the circumflex artery. Mike Canchola MD
== END 2017-08-20 14:25 | disposition home or self-care (01) ==
LOC: CATH 06:30 → 2RSO 10:52 → CATH 08-20 14:25
PROVIDERS: ATTEND Internal Medicine Cardiovascular Disease
DX: I25.10 Atherosclerotic heart disease of native coronary artery without angina pectoris (principal); R94.39 Abnormal result of other cardiovascular function study; I10 Essential (primary) hypertension; I69.351 Hemiplegia and hemiparesis following cerebral infarction affecting right dominant side; Z79.82 Long term (current) use of aspirin; Z87.891 Personal history of nicotine dependence; Z95.0 Presence of cardiac pacemaker; Z80.1 Family history of malignant neoplasm of trachea, bronchus and lung; Z91.09 Other allergy status, other than to drugs and biological substances; R40.2413 Glasgow coma scale score 13-15, at hospital admission; Z23 Encounter for immunization
CPT/HCPCS: 36415 ×2; 80048; 80053; 85025 ×2; 85027; 85610; 85730; 86850; 86900; 90732; 93005 ×2; 93458; 99152; 99153; C1725 ×2; C1760; C1769 ×2; C1874 ×3; C1887; C2629; C9600; G0009; J0583; J1644; J2250; J3010; J7040 ×2; Q9967 ×2

== ENCOUNTER 2017-08-25 06:16 | Day surgery (SDC) | payer MEDICARE, OTHER ==
[2017-08-21 10:17] VITALS: BMI 22.1
[2017-08-25] MEDS ORDERED: Lidocaine 2% Inj (20ml) ONE (06:43)
[2017-08-25] MEDS ORDERED: Midazolam 2 MG/2 ML VIAL ONE ×2 (06:44→07:57)
[2017-08-25] MEDS ORDERED: Phenylephrine 10 mg/ml Inj ONE (06:44)
[2017-08-25] MEDS ORDERED: Nitroglycerin 50mg in D5W 0 MG/0 ML BOTTLE IV ONE (06:46)
[2017-08-25] MEDS ORDERED: HEPARIN SODIUM/NS 1,000 ML IV ONE (06:46)
[2017-08-25] MEDS ORDERED: Iodixanol 320 MG/ML 200 ML BOTTLE IV ONE (06:46)
[2017-08-25] MEDS ORDERED: Iodixanol 320 MG/ML 100 ML BOTTLE IV ONE (06:46)
[2017-08-25] MEDS ORDERED: Iohexol 350mgl/ml 50 ML ONE (06:46)
[2017-08-25 07:12] LABS: BASO # 0.04 K/mm3 (0.0-2.0); BASO % 0.7 % (0.0-3.0); EOS # 0.5 (0.0-0.7); EOS % 7.7 % (1.5-5.0); GRAN # 3.86 (1.4-6.5); GRAN % 66.5 % (50.0-68.0); LYMPH % 16.7 % (22.0-35.0); MEAN CELL VOLUME 98.1 fl (80.0-105.0); MEAN CORPUSCULAR HEMOGLOBIN 32.5 pg (25.0-35.0); MEAN CORPUSCULAR HGB CONC 33.1 g/dl (31.0-37.0); MEAN PLATELET VOLUME 11.1 fl (7.0-11.0); MONO # 0.5 (0.1-0.6); MONO % 8.4 % (1.0-6.0); RBC 3.69 10^6/uL (3.5-6.1); RED CELL DISTRIBUTION WIDTH 13.3 % (11.5-14.5); WHITE BLOOD COUNT 5.8 10^3/ul (4.5-11.0)
[2017-08-25 07:21] LABS: BLOOD UREA NITROGEN 18 mg/dL (7-21); CALCIUM 9.1 mg/dL (8.4-10.5); GFR AFRICAN-AMERICAN > 60; GFR NON-AFRICAN AMERICAN 54
[2017-08-25 07:27] LABS: INR 1.17 (0.93-1.08); PROTHROMBIN TIME 13.5 SECONDS (9.4-12.5)
[2017-08-25] MEDS ORDERED: Sodium Chloride 0.9% 1,000 ML IV SCH (09:00)
--- NOTE | 2017-08-25 10:33 | CARDCATH ---
PROCEDURE DATE: 08/25/2017 PROCEDURES: Cardiac catheterization and percutaneous transluminal coronary angioplasty. HISTORY: The patient is a 75-year-old male with multiple cardiac risk factors who presents for stage PTCA of the circumflex artery. The patient presents with a non-STEMI and unstable angina found to have multivessel PTCA and underwent a PTCA and stent of an LAD diagonal last week. He presents for PTCA and stent of the circumflex artery. PROCEDURE IN DETAIL: The left femoral artery was cannulated with 6-Armenian sheath. There were no complications. I performed moderate sedation which included the presence of an independent trained observer that assisted in monitoring the patient's level of consciousness and physiologic status. After administration of Versed and fentanyl, my intra service time was 30 minutes. FINDINGS: 1. The findings on catheterization revealed a patent stent in the mid LAD that was placed last week. 2. There was 50% stenosis at the ostium of the diagonal vessel with PERRY III flow. 3. The circumflex artery revealed an eccentric 70% lesion in the proximal portion followed by an 80% stenosis in the proximal portion of the obtuse marginal branch. 4. The patient was started on intravenous Angiomax under fluoroscopic guide, the guiding catheter was placed in the ostium of the circumflex artery passed the two critical lesions. 5. A 2.5 x 12 mm drug-eluting stent was placed and deployed in the proximal lesion. 6. Balloon angioplasty was performed with 2.0 and a 2.5 balloon in the proximal portion of the obtuse marginal branch. A stent could not be crossed due to the marked tortuosity and calcification. 7. Repeat coronary artery revealed an improvement of the obtuse marginal branch lesion to a residual stenoses of 40% to 50%. 8. There was PERRY III flow. IMPRESSION: In summary, the procedure was successful of percutaneous transluminal coronary angioplasty and stent of a proximal circumflex artery and the percutaneous transluminal coronary angioplasty of the proximal portion of the obtuse marginal branch. PLAN: Given these findings, the patient will need to remain on aspirin indefinitely and Plavix for at least a year and undergo a strict cardiac risk reduction program. Mike Canchola MD [facility] # [id number]
--- NOTE | 2017-08-25 13:58 | CARD ---
APPROVED REPORT EKG Measurement Heart [id number] [place] 134P26 [id number] <Conclusion> AV sequential or dual chamber electronic pacemaker
--- NOTE | 2017-08-25 14:01 | CARD ---
APPROVED REPORT EKG Measurement Heart [id number] CT 138P19 [id number] <Conclusion> AV sequential or dual chamber electronic pacemaker
--- NOTE | 2017-08-25 19:55 | HP ---
HISTORY OF PRESENT ILLNESS: I know Mr. Couch for a while. He comes to the office. He was just here recently with Dr. Canchola for a cardiac stent. He is here for a staged cardiac stent placement, it was done this morning. I see him comfortably in his bed. He is now in the process of lying flat for 6 hours. He has had also episodes of very low heart rate, bradycardia, and had permanent pacemaker inserted on August 05. He has had his second cardiac cath. He has history of CAD, hypertension, stroke in 2009 with right-sided weakness, slurred speech. He also then had a fall on August 14, complete heart block and syncope. He had a pacemaker. No cancer history. Brother has lung cancer. He quit smoking 7 years ago. He did have surgeries. He had a pacemaker implanted. He is awake, alert and comfortable in bed. He has an old stroke with right-sided weakness. He is alert. He is smiling, in good spirits. He understands the deal about lying flat. ALLERGIES: He has no known drug allergies. MEDICATIONS: He is currently taking aspirin, Lipitor, Lopressor, Plavix. REVIEW OF SYSTEMS: He has no acute vision or hearing changes. No sore throat. No shortness of breath or cough. No shortness of breath on stress. No chest pain or palpitations. No cough. No abdominal pain. No nausea or vomiting. No constipation or diarrhea. No leg pains. He has right-sided weakness which is old. He can move all four extremities. Slurred speech, but it is understandable. Skin for the most part is intact. No apparent rashes or ulcers. PHYSICAL EXAMINATION VITAL SIGNS: He has a 98.1 temperature, 60 pulse, 135/70 blood pressure, 18 respiratory rate, 99% O2 sat on room air. HEENT: His head is atraumatic, normocephalic. Eyes are open. Extraocular muscles are intact. Throat is moist. NECK: Supple. Thyroid midline. No palpable appreciable lymphadenopathy. HEART: Regular rate. Permanent pacemaker is in place. LUNGS: Decreased breath sounds, clear to auscultation. No wheezing, no rhonchi, no rales. ABDOMEN: Soft, nontender. Positive bowel sounds. No guarding, no rebound, no CVA tenderness. EXTREMITIES: No edema. NEUROLOGIC: Right-sided weakness is secondary to his stroke. He has some slurred speech, but it is understandable. Alert and oriented x3. GCS is 15. SKIN: For the most part is intact. Good turgor. No rashes or ulcers appreciated. LYMPHATICS: No apparent or appreciate lymphadenopathy. LABORATORY DATA: He had lab tests done. He has a 143 sodium, potassium 4.4, BUN is , creatinine 1.2, GFR is 54, sugar is 116, calcium is 9.1. INR is 1.17. He has a 5.8 white count, 12 hemoglobin, 36.2 hematocrit with 242 platelets. ASSESSMENT AND PLAN: He is comfortable. He understands the plan of lying flat. We will give him food. Tomorrow he is felt to be discharged. We will check his labs tomorrow. He is here for a staged cardiac cath for CAD and stent placement, old cerebrovascular accident with right-sided weakness. Vinay Cornell DO MTDD
[2017-08-26 06:32] VITALS: TEMP 98.5; O2SAT 96
[2017-08-26 06:50] LABS: BASO # 0.03 K/mm3 (0.0-2.0); BASO % 0.4 % (0.0-3.0); EOS # 0.4 (0.0-0.7); EOS % 5.2 % (1.5-5.0); GRAN # 5.95 (1.4-6.5); GRAN % 70.6 % (50.0-68.0); HEMOGLOBIN 12.8 g/dL (14.0-18.0); LYMPH # 1.3 (1.2-3.4); LYMPH % 14.8 % (22.0-35.0); MEAN CELL VOLUME 96.9 fl (80.0-105.0); MEAN CORPUSCULAR HEMOGLOBIN 32.8 pg (25.0-35.0); MEAN CORPUSCULAR HGB CONC 33.9 g/dl (31.0-37.0); MEAN PLATELET VOLUME 11.2 fl (7.0-11.0); MONO # 0.8 (0.1-0.6); RBC 3.9 10^6/uL (3.5-6.1); RED CELL DISTRIBUTION WIDTH 13.3 % (11.5-14.5); WHITE BLOOD COUNT 8.4 10^3/ul (4.5-11.0)
[2017-08-26 07:13] LABS: ALBUMIN 3.6 g/dL (3.0-4.8); ALT/SGPT 33 U/L (7-56); AST/SGOT 46 U/L (17-59); BLOOD UREA NITROGEN 15 mg/dL (7-21); GFR AFRICAN-AMERICAN > 60; GFR NON-AFRICAN AMERICAN > 60
--- NOTE | 2017-08-26 09:53 | DS ---
SUBJECTIVE: I saw him resting comfortably in bed. He slept well last night. No complaints of chest pain or shortness of breath. No abdominal pain. His leg feels well. He is going to be discharged today after Dr. Canchola sees him this morning. PHYSICAL EXAMINATION: VITAL SIGNS: He has 98.5 temperature, 78 pulse, 122/74 blood pressure, 20 respiratory rate, 96% O2 saturation on room air. HEENT: Head is atraumatic, normocephalic. Throat is moist. NECK: Supple. HEART: Regular rate. LUNGS: Clear to auscultation. ABDOMEN: Soft. EXTREMITIES: No edema. Right-sided weakness secondary from stroke. MEDICATIONS: He is on Ecotrin, Lipitor and Plavix. LABORATORY DATA: He has a 8.4 white count, 12.8 hemoglobin, 37.8 hematocrit with 243 platelets. Sodium 142, potassium 4.1, BUN 15, creatinine 1.1, GFR is greater than 60, sugar is 129, calcium is 9. Total bili is 0.7, AST is 46, ALT is 33, and alkaline phosphatase is 71, total protein is 7.3. ASSESSMENT AND PLAN: Overall, he is doing very well. He should be discharged later on this afternoon or this morning after Dr. Canchola sees him. I will follow up in the outpatient in a week. Vinay Cornell DO
--- NOTE | 2017-08-26 10:53 | CARD ---
APPROVED REPORT EKG Measurement Heart [id number] [place] 192P49 [id number] <Conclusion> Normal sinus rhythm Left axis deviation Right bundle branch block Abnormal ECG
[2017-08-26 11:40] VITALS: BP 122/71; RESP 16
[2017-08-26 15:03] VITALS: PULSE 89
--- NOTE | 2017-08-26 15:40 | PN ---
DATE: 08/26/2017 CARDIOLOGY FOLLOWUP NOTE SUBJECTIVE: The patient is ambulating without symptoms. OBJECTIVE: VITAL SIGNS: Blood pressure is 122/71 and heart rate is in the 70s. NECK: Negative JVD. LUNGS: Without rales. HEART: S1 and S2. EXTREMITIES: Without edema. LABORATORY DATA: Hemoglobin is 12.8. Chemistries, BUN and creatinine are unremarkable. IMPRESSION: 1. Stable post percutaneous transluminal coronary angioplasty and stent. 2. Coronary artery disease. 3. Hypertension. 4. Hypercholesterolemia. PLAN: Given these findings, the patient is stable for discharge. Followup instructions were given to the patient in detail. Mike Canchola MD
== END 2017-08-26 15:37 | disposition home or self-care (01) ==
LOC: CATH 06:16 → 2RSO 08:48 → CATH 08-26 15:37
PROVIDERS: ATTEND Family Medicine
DX: I25.10 Atherosclerotic heart disease of native coronary artery without angina pectoris (principal); E78.00 Pure hypercholesterolemia, unspecified; I10 Essential (primary) hypertension; I44.2 Atrioventricular block, complete; I69.351 Hemiplegia and hemiparesis following cerebral infarction affecting right dominant side; W19.XXXA Unspecified fall, initial encounter; Z79.82 Long term (current) use of aspirin; Z80.1 Family history of malignant neoplasm of trachea, bronchus and lung; Z87.891 Personal history of nicotine dependence; Z95.0 Presence of cardiac pacemaker; Z95.5 Presence of coronary angioplasty implant and graft
CPT/HCPCS: 36415 ×2; 80048; 80053; 85025 ×2; 85027; 85610; 85730; 86850; 86900; 93005 ×2; 93454; 99152; C1725 ×2; C1760; C1769 ×3; C1874; C1887; C2629; C9600; J0583; J1644; J2250; J3010; Q9967 ×2